=== PATIENT | male | born 1980 | race Caucasian/White ===

== ENCOUNTER 2017-07-27 09:04 | Emergency (ER) | payer SELFPAY ==
[2017-07-27] MEDS ORDERED: PEPCID IV ONE (09:35)
[2017-07-27] MEDS ORDERED: DECADRON IV ONE (09:35)
[2017-07-27] MEDS ORDERED: BENADRYL IV ONE (09:35)
--- NOTE | 2017-07-27 09:41 | Emergency Department Report ---
ED General Adult HPI - General Chief complaint: Allergic Reaction Stated complaint: ALLERGIC REACTION Time Seen by Provider: 07/27/17 09:35 Source: patient, family Mode of arrival: Wheelchair Limitations: Language Barrier - History of Present Illness Initial comments: This is the second such similar event. 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 He was using some type of glue yesterday. It got on his hands and he rubbed his face. He developed swelling of his face quite diffusely. He has no difficulty swallowing. He can't open his left eye at all and his right eye minimally. He denies any respiratory symptoms. He denies any fever or chills. The prior episode occurred after exposure to the same chemical glue. I obtained the history in Croatian. -: Gradual, hour(s) Location: face Radiation: non-radiation Quality: other (swelling) Consistency: constant Improves with: none Worsens with: none Associated Symptoms: denies other symptoms Treatments Prior to Arrival: none - Related Data Previous Rx's Medication Instructions Recorded Last Taken Type predniSONE [Deltasone] 40 mg PO QDAY #14 tab 07/27/17 Unknown Rx Allergies Allergy/AdvReac Type Severity Reaction Status Date / Time Penicillins Allergy Itching Verified 07/27/17 09:17 ED Review of Systems ROS: Stated complaint: ALLERGIC REACTION Other details as noted in HPI Constitutional: denies: chills, fever Eyes: as per HPI. denies: eye pain, eye discharge, vision change ENT: as per HPI. denies: ear pain, throat pain Respiratory: denies: cough, shortness of breath, wheezing Cardiovascular: denies: chest pain, palpitations Endocrine: no symptoms reported Gastrointestinal: denies: abdominal pain, nausea, diarrhea Genitourinary: denies: urgency, dysuria Musculoskeletal: denies: back pain, joint swelling, arthralgia Skin: as per HPI, change in color. 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 - Medications Home Medications: Home Medications Medication Instructions Recorded Confirmed Last Taken Type predniSONE [Deltasone] 40 mg PO QDAY #14 tab 07/27/17 Unknown Rx ED Physical Exam - General Limitations: No Limitations General appearance: alert, in no apparent distress - Head Head exam: Present: atraumatic, normocephalic - Eye Eye exam: Present: PERRL, EOMI, periorbital swelling - ENT ENT exam: Present: normal orophraynx, mucous membranes moist - Neck Neck exam: Present: normal inspection. Absent: tenderness, meningismus - Respiratory Respiratory exam: Present: normal lung sounds bilaterally. Absent: respiratory distress - Cardiovascular Cardiovascular Exam: Present: regular rate, normal rhythm. Absent: systolic murmur, diastolic murmur, rubs, gallop - GI/Abdominal GI/Abdominal exam: Present: soft, normal bowel sounds. Absent: distended, tenderness, guarding, rebound, rigid - Rectal Rectal exam: Present: deferred - Extremities Exam Extremities exam: Present: normal inspection - Back Exam Back exam: Present: normal inspection - Neurological Exam Neurological exam: Present: alert, oriented X3, CN II-XII intact. Absent: motor sensory deficit - Psychiatric Psychiatric exam: Present: normal affect, normal mood - Skin Skin exam: Present: warm, dry, intact, normal color. Absent: rash ED Course Vital Signs 07/27/17 07/27/17 07/27/17 09:17 09:19 09:30 Temperature 98.9 F Pulse Rate 74 80 Respiratory 18 Rate Blood Pressure 120/89 O2 Sat by Pulse 100 99 Oximetry 07/27/17 07/27/17 07/27/17 09:45 10:00 10:15 Temperature Pulse Rate Respiratory Rate Blood Pressure 131/85 121/82 121/82 O2 Sat by Pulse 99 99 98 Oximetry 07/27/17 07/27/17 07/27/17 10:19 10:31 10:45 Temperature Pulse Rate 82 Respiratory Rate Blood Pressure 121/82 121/82 O2 Sat by Pulse 99 99 Oximetry 07/27/17 07/27/17 07/27/17 11:00 11:15 11:19 Temperature Pulse Rate 78 Respiratory Rate Blood Pressure 122/77 122/77 O2 Sat by Pulse 100 99 Oximetry 07/27/17 07/27/17 07/27/17 11:31 11:45 11:49 Temperature Pulse Rate Respiratory Rate Blood Pressure 122/77 122/77 O2 Sat by Pulse 99 98 100 Oximetry - Reevaluation(s) Reevaluation #1: On reevaluation the patient's facial edema and erythema has remarkably improved. It is about 1+ compared to 3+. He never developed any signs of airway or oral edema. He is appropriate for outpatient follow-up. 07/27/17 14:12 Critical care attestation.: If time is entered above; I have spent that time in minutes in the direct care of this critically ill patient, excluding procedure time. ED Disposition Clinical Impression: Allergic reaction Qualifiers: Encounter type: initial encounter Qualified Code(s): T78.40XA - Allergy, unspecified, initial encounter Contact dermatitis Qualifiers: Contact dermatitis type: unspecified Contact dermatitis trigger: unspecified trigger Qualified Code(s): L25.9 - Unspecified contact dermatitis, unspecified cause Disposition: TO HOME OR SELFCARE Is pt being admited?: No Does the pt Need Aspirin: No Condition: Stable Instructions: Urticaria (ED), Contact Dermatitis (ED) Additional Instructions: Avoid contact with chemicals particularly that particular one in the future. Rx as directed. Follow-up with a primary care physician. See referral. Benadryl 50 mg every 6 hours [id number] as needed for swelling or itching. Prescriptions: predniSONE [Deltasone] 40 mg PO QDAY #14 tab Referrals: PRIMARY CARE, [Primary Care Provider] - 3-5 Days [facility] [Provider Group] - 3-5 Days Time of Disposition: 14:16
[2017-07-27 14:48] VITALS: BP 113/75
== END 2017-07-27 14:30 | disposition home or self-care (01) ==
LOC: ED 09:04
DX: T78.40XA Allergy, unspecified, initial encounter (principal); X58.XXXA Exposure to other specified factors, initial encounter
CPT/HCPCS: 96374; 96375; 99283; J1100; J1200